=== PATIENT | female | born 1960 | race Caucasian/White ===

== ENCOUNTER 2017-10-29 20:59 | Inpatient (IN) | payer SELFPAY ==
[~2017-10-29] VITALS: Ht 160 cm; Wt 87.9 kg
[2017-10-30 02:12] VITALS: BP 167/80; PULSE 62; RESP 18; TEMP 97.3; O2SAT 98
[2017-10-30] MEDS ORDERED: ALUMINUM/MAGNESIUM/SIMETH 30 ML CUP PO PRN (04:30)
[2017-10-30] MEDS ORDERED: MAGNESIUM HYDROXIDE SUSP 30 ML CUP PO PRN (04:30)
[2017-10-30 05:57] VITALS: BP 148/76; PULSE 67; RESP 16; TEMP 97.9; O2SAT 97
[2017-10-30] MEDS: ACETAMINOPHEN 325 MG TAB PO PRN (12:26)
[2017-10-30] MEDS ORDERED: LORazepam 1 MG TAB PO PRN (14:00)
[2017-10-30] MEDS ORDERED: buPROPion HCL 150 MG EXTENDED RELEASE TAB PO SCH (14:00)
[2017-10-30] MEDS: ESCITALOPRAM OXALATE 20 MG TAB PO SCH (14:45)
--- NOTE | 2017-10-30 15:33 | HHI.HP ---
Provisional Diagnosis Admission Date Oct 30, 2017 at 01:45 [facility]. Major depressive disorder Certification of Person's Competence To Provide Express and Informed Consent I have personally examined Abril Camilo , a person being served at [facility] on, Oct 30, 2017 15:18. Express and informed consent means consent voluntarily given in writing, by a competent person, after sufficient explanation and disclosure of the subject matter involved to enable the person to make a knowing and willful decision without any element of force, fraud, deceit, duress, or other form of constraint or coercion. This person is 18 years of age or older, is not now known to be incompetent to consent to treatment with a guardian advocate, and does not have a health care surrogate or proxy currently making medical treatment decisions. I have found this person to be one of the following: [xxx] Competent to provide express and informed consent, as defined above, for voluntary admission to this facility and is competent to provide express and informed consent for treatment. He/she has the consistent capacity to make well reasoned, willful, and knowing decisions concerning his or her medical or mental health treatment. The person fully and consistently understands the purpose of the admission for examination/placement and is fully capable of personally exercising all rights assured [place] Incompetent to provide express and informed consent to voluntary admission, and this is incompetent to provide express and informed consent to treatment. The person must be transferred to involuntary status and a petition for a guardian advocate filed with the Circuit Court. [] Refusing to provide express and informed consent to voluntary admission but is competent to provide express and informed consent for treatment. The person must be discharged or transferred to involuntary status. Form shall be completed within 24 hours of a person's arrival at the receiving facility and filed in the clinical record of each person: 1. Admitted on a voluntary basis 2. Permitted to provide express and informed consent to his/her own treatment 3. Allowed to transfer from involuntary to voluntary status 4. Prior to permitting a person to consent to his or her own treatment after having been previously found incompetent to consent to treatment. History of Present Illness Capacity: Has Capacity HPI Patient is a 59-year-old woman, but currently engage to remarry, employed as a nurse, domiciled with [employer], with a past psychiatric history of depression and anxiety, one previous psychiatric admission 2013, when previous suicide attempt in 2013, no history of self-injurious behavior, with a past medical history significant for hypertension and hypothyroidism who was transferred from a local hospital under [place] [facility] due to worsening depressive symptoms and suicide ideations for the past 2 weeks along with having run out of her medications which patient was admitted to the inpatient psychiatry for further evaluation and management. Patient was found lying hospital bed noted B, cooperative but tearful during interview as well. Patient states that recently she has been having hypersomnolent sleeping more than usual, with low with decreased appetite and energy, decreased concentration and continues to feel depressed on and off for the past 2 months but recently worsening for the past 2 weeks. Patient states that she had also been having intermittent suicide ideation for the past month. She reports current psychosocial stressors include financial difficulty, not having [facility] medications for the past 2 weeks, currently not having insurance, and reporting abortus per in her knee which has been bothersome. Patient states that her fitila had brought into the hospital to seek help. Today she states that she does not have active suicide ideations, currently wants to be older resume her treatment and today feels more hopeful but denying any perceptional service of delusions at this time. Family psychiatric history: Reports immediate family with diagnoses of depression, anxiety and schizophrenia, denies any suicides in the family. Past psychiatric history: Previous psychiatric diagnoses depression, anxiety, one previous psychiatric admission in 2013, 1 previous suicide attempt 2013. Patient denies any history of self-injurious behavior or history of abuse. Substance use history: Patient reports having quit tobacco several months ago, has occasional alcohol use during holidays, denies any drug use. Past medical history: Hypertension hypothyroidism Allergies: Penicillin, MAURICIO inhibitors, erythromycin, nalbuphine Social history: but currently engaged with partner, domiciled with [employer], 2 roommates, employed as a nurse, no background. 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 Collateral contact: Felipa Brody [phone] Review of Systems Except as stated in HPI: all other systems reviewed are Neg Past Psych History Violence risk - others (6 mos) Low Violence risk - self (6 mos) Elevated due to recent suicidal ideations and history of suicide attempt in the past. Substance Abuse History Drugs/Alcohol past 12 months Previous psychiatric diagnoses depression, anxiety, one previous psychiatric admission in 2013, 1 previous suicide attempt 2013. Patient denies any history of self-injurious behavior or history of abuse Past Family Social History Coded Allergies: MAURICIO Inhibitors (Verified Allergy, Unknown, cough, 10/30/17) Penicillins (Verified Allergy, Unknown, rash, 10/30/17) erythromycin base (Verified Allergy, Unknown, rash, 10/30/17) nalbuphine (Verified Allergy, Unknown, rash, 10/30/17) Current Medications Medications (Trade) Dose Ordered Sig/Pavan Route Start Time Stop Time Status Last Admin (Tylenol) 650 mg Q4H PRN PO 10/30/17 04:30 10/30/17 12:26 (Milk Of Magnesia Liq) 30 ml DAILY PRN PO 10/30/17 04:30 (Mag-Al Plus Susp Liq) 30 ml Q6H PRN PO 10/30/17 04:30 (Synthroid) 75 mcg DAILY@0600 PO 10/31/17 06:00 (Cozaar) 100 mg DAILY PO 10/31/17 09:00 (Lexapro) 20 mg DAILY PO 10/30/17 14:00 10/30/17 14:45 (Desyrel) 50 mg HS PRN PO 10/30/17 14:00 (Ativan) 1 mg Q6H PRN PO 10/30/17 14:00 (Wellbutrin Sr) 150 mg BID PO 10/30/17 21:00 Family Psych History Many members from her immediate family with diagnoses of depression, anxiety and schizophrenia, no suicides in the family. Social History but currently engaged with partner, domiciled with [employer], 2 roommates , employed as a nurse, no background. 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 Collateral contact: Felipa Brody [phone] Patient's Strengths (min. 2) Verbal and communicative Physical Exam Patient not noted to be in acute distress, no gross motor abnormalities, no tremors or EPS, no noted psychomotor retardation or agitation. Vital Signs Vital Signs Date Time Temp Pulse Resp B/P (MAP) Pulse Ox O2 Delivery O2 Flow Rate FiO2 10/30/17 05:57 97.9 67 16 148/76 (100) 97 Mental Status Examination Appearance: Appropriate, Other (In hospital [facility]) Consciousness: Alert Orientation: Person, Place, Date/Time Motor Activity: Normal gait Speech: Unremarkable Language: Adequate Fund of Knowledge: Adequate Attention and Concentration: Adequate Memory: Unremarkable Mood: Sad Affect: Sad Thought Process & Associations: Intact, Linear Thought Content: Appropriate Hallucination Type: None Delusion Type: None Suicidal Ideation: No Suicidal Plan: No Suicidal Intention: No Homicidal Ideation: No Homicidal Plan: No Homicidal Intention: No Insight: Fair Judgment: Impulsive Assessment & Plan Problem List: (1) Major depressive disorder ICD Codes: F32.9 - Major depressive disorder, single episode, unspecified Assessment & Plan Estimated LOS: days Discharge Planning Return back to her residence Problem Qualifiers (1) Major depressive disorder: Mino Srinivasan MD Oct 30, 2017 15:33
--- NOTE | 2017-10-30 16:07 | PD.CONS ---
HPI Service [facility] Hospitalists Consult Requested By Psychiatric services Reason for Consult Assist with management of medical issues Primary Care Physician No Primary Care Physician Diagnoses: History of Present Illness Written by Hyun Valentin, acting as scribe for Dr. Hong on 10/30/17 at 16: 07. This is a 57-year-old female with past medical history significant for hypertension, hypothyroidism, occasional PVCs, depression, anxiety and IBS who was transferred to [facility] inpatient psychiatric unit under [facility] act for worsening depression. Hospitalist services have been consulted for evaluation and management of medical issues. Patient seen and examined. She is complaining of headache at present. She denies any complaints of fever, chills, vision changes, dizziness, numbness/tingling or weakness. She denies any complaints of chest pain or shortness of breath. She denies any nausea, vomiting or abdominal pain. She does complain of right knee pain secondary of bone spur which is chronic. She denies any urinary complaints. She does report an episode of diarrhea earlier that she relates to her history of IBS and increased stress. Reportedly, patient had worsening depression for the past 2 weeks with suicidal ideation and recently ran out of her medications. She has been hypersomnolent as well as having decreased appetite, energy and concentration. She has a previous history of suicide attempt in 2014. Review of Systems Except as stated in HPI: all other systems reviewed are Neg Past Family Social History Allergies: Coded Allergies: MAURICIO Inhibitors (Verified Allergy, Unknown, cough, 10/30/17) Penicillins (Verified Allergy, Unknown, rash, 10/30/17) erythromycin base (Verified Allergy, Unknown, rash, 10/30/17) nalbuphine (Verified Allergy, Unknown, rash, 10/30/17) Past Medical History Hypertension Hypothyroidism IBS Depression Anxiety Past Surgical History Left shoulder rotator cuff repair and removal bone spur Cholecystectomy Bilateral tubal ligation Appendectomy Reported Medications Cozaar 100 mg daily Synthroid 75 mcg daily Wellbutrin SR 150 mg twice daily Active Ordered Medications Current Medications Medications (Trade) Dose Ordered Sig/Pavan Route Start Time Stop Time Status Last Admin (Tylenol) 650 mg Q4H PRN PO 10/30/17 04:30 10/30/17 12:26 (Milk Of Magnesia Liq) 30 ml DAILY PRN PO 10/30/17 04:30 (Mag-Al Plus Susp Liq) 30 ml Q6H PRN PO 10/30/17 04:30 (Synthroid) 75 mcg DAILY@0600 PO 10/31/17 06:00 (Cozaar) 100 mg DAILY PO 10/31/17 09:00 (Lexapro) 20 mg DAILY PO 10/30/17 14:00 10/30/17 14:45 (Desyrel) 50 mg HS PRN PO 10/30/17 14:00 (Ativan) 1 mg Q6H PRN PO 10/30/17 14:00 (Wellbutrin Sr) 150 mg BID PO 10/30/17 21:00 Family History Mother, kidney tumor Father, lung problems Depression Anxiety Social History Patient has a previous history of tobacco use but states she quit March 2017. Patient reports alcohol consumption "varies depending on what I am drinking" ranging from 1 - 4 alcoholic beverages. She denies any illicit drug use. 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 Physical Exam Vital Signs Vital Signs Date Time Temp Pulse Resp B/P (MAP) Pulse Ox O2 Delivery O2 Flow Rate FiO2 10/30/17 05:57 97.9 67 16 148/76 (100) 97 10/30/17 02:12 97.3 62 18 167/80 (109) 98 Physical Exam GENERAL: This is a well-nourished, well-developed female patient, in no apparent distress. Awake and alert. SKIN: No rashes, ecchymoses or lesions. Cool and dry. HEAD: Atraumatic. Normocephalic. No temporal or scalp tenderness. EYES: Pupils equal round and reactive. Extraocular motions intact. No scleral icterus. No injection or drainage. ENT: Nose without bleeding or purulent drainage. Throat without erythema, tonsillar hypertrophy or exudate. Uvula midline. Airway patent. NECK: Trachea midline. No JVD or lymphadenopathy. Supple, nontender, no meningeal signs. CARDIOVASCULAR: Regular rate and rhythm without murmurs, gallops, or rubs. RESPIRATORY: Clear to auscultation. Breath sounds equal bilaterally. No wheezes , rales, or rhonchi. GASTROINTESTINAL: Abdomen soft, non-tender, nondistended. No hepato-splenomegaly , or palpable masses. No guarding. MUSCULOSKELETAL: Extremities without clubbing, cyanosis, or edema. +mild right knee tenderness to palpation, no effusion or warmth appreciated. No calf tenderness. NEUROLOGICAL: Awake and alert. Cranial nerves II through XII intact. Motor and sensory grossly within normal limits. Able to move all extremities spontaneously. Normal speech. PSYCHIATRIC: Calm and cooperative with examination Assessment and Plan Assessment and Plan 57-year-old female with past medical history significant for hypertension, hypothyroidism, occasional PVCs, depression, anxiety and IBS who was transferred to [facility] inpatient psychiatric unit under [facility] act for worsening depression. Hospitalist services have been consulted for evaluation and management of medical issues. Depression Anxiety History of suicide attempt -Management per psychiatric service Hypertension -Agree with resuming patient's Cozaar 100 mg daily -Continue to monitor BP and adjust treatment accordingly Hypothyroidism -Agree with resuming home dose of Levothyroxine 75mcg daily -Reviewed medical records from patient's previous hospitalization and if TSH has not been recently drawn will order here at our institution IBS patient with episode of diarrhea x 1 -monitor Right knee pain, chronic ppr, secondary to bone spur -Tylenol prn pain DVT prophylaxis -Patient is ambulatory Thank you very kindly for this consultation and will continue to follow along with you. This note was transcribed by tamika Valentin. I, Dr. Kadeem Hong personally performed the history, physical exam, and medical decision making; and confirmed the accuracy of the information in the transcribed note. Authenticated by Dr. Kadeem Hong on 10/30/17 at 17:42. Discussed Condition With patient, nursing staff Hyun Valentin Oct 30, 2017 16:07 Kadeem Hong MD Oct 30, 2017 17:42
[2017-10-30 17:39] VITALS: BP 132/78; PULSE 77; RESP 19; TEMP 97.8; O2SAT 98
[2017-10-30] MEDS: buPROPion HCL 150 MG SUSTAINED RELEASE TAB PO SCH (20:58)
[2017-10-30] MEDS: traZODone HCL 50 MG TAB PO PRN (21:48)
[2017-10-31] MEDS: LEVOTHYROXINE SODIUM 75 MCG TAB PO SCH (05:49)
[2017-10-31 06:04] VITALS: BP 127/69; PULSE 60; RESP 16; TEMP 97.9; O2SAT 96
[2017-10-31] MEDS: LOSARTAN 50 MG TAB PO SCH (08:40)
[2017-10-31] MEDS: ESCITALOPRAM OXALATE 20 MG TAB PO SCH (08:40)
[2017-10-31] MEDS: buPROPion HCL 150 MG SUSTAINED RELEASE TAB PO SCH ×2 (09:37→21:20)
[2017-10-31] MEDS: ACETAMINOPHEN 325 MG TAB PO PRN (09:38)
--- NOTE | 2017-10-31 11:44 | HHI.PR ---
Subjective Remarks Follow-up on patient with depression, hypertension, hypothyroidism, right knee pain. Patient seen and examined. Patient complains that her right knee pain is 2 out of 10. She states that she is trying to get in to see an orthopedist but has not been able to do so secondary to not having any insurance coverage but she will have at the end of the month. She complains of some anxiety today mostly due to 1 of the other patients who talks constantly. She denies any complaints of headache, vision changes or dizziness. Denies any chest pain or shortness of breath. Denies any nausea, vomiting or abdominal pain. Patient states she takes Aleve at home with good results in her right knee pain. Discussed with patient reviewed previous medical records and TSH level was not drawn so we will order for her during this hospitalization. Objective Vitals Vital Signs Date Time Temp Pulse Resp B/P (MAP) Pulse Ox O2 Delivery O2 Flow Rate FiO2 10/31/17 06:04 97.9 60 16 127/69 (88) 96 10/30/17 17:39 97.8 77 19 132/78 (96) 98 Objective Remarks GENERAL: This is a well-nourished, well-developed female patient, in no apparent distress. Awake and alert. SKIN: No rashes, ecchymoses or lesions. Cool and dry. HEAD: Atraumatic. Normocephalic. EYES: Pupils equal round and reactive. Extraocular motions intact. No scleral icterus. No injection or drainage. ENT: Nose without bleeding or purulent drainage. Airway patent. MMM. NECK: Trachea midline. CARDIOVASCULAR: Regular rate and rhythm without murmurs, gallops, or rubs. RESPIRATORY: Clear to auscultation. Breath sounds equal bilaterally. No wheezes , rales, or rhonchi. GASTROINTESTINAL: Abdomen soft, non-tender, nondistended. No hepato-splenomegaly , or palpable masses. No guarding. MUSCULOSKELETAL: Extremities without clubbing, cyanosis, or edema. +mild right knee tenderness to palpation, no effusion or warmth appreciated. No calf tenderness. NEUROLOGICAL: Awake and alert. Cranial nerves II through XII intact. Motor and sensory grossly within normal limits. Able to move all extremities spontaneously. Normal speech. PSYCHIATRIC: Calm and cooperative with examination Procedures None A/P Assessment and Plan 57-year-old female with past medical history significant for hypertension, hypothyroidism, occasional PVCs, depression, anxiety and IBS who was transferred to [facility] inpatient psychiatric unit under [facility] act for worsening depression. Hospitalist services have been consulted for evaluation and management of medical issues. Depression Anxiety History of suicide attempt -Management per psychiatric service Hypertension, chronic, much better controlled today -Continue patient on Cozaar 100 mg daily -Continue to monitor BP and adjust treatment accordingly Hypothyroidism -TSH ordered and elevated at 58.5. Confirmed with patient she has not been on her thyroid replacement for at least 2 1/2 weeks. Recommend she continue on current dose of levothyroxine and plan to follow-up with her PCP to have TSH level rechecked in 4-6 weeks. Discussed as much with [place] Irvin. -Continue on home dose of levothyroxine IBS patient with episode of diarrhea x 1 -monitor Right knee pain, chronic ppr, secondary to bone spur -Tylenol prn pain DVT prophylaxis -Patient is ambulatory Patient appears stable from hospitalist standpoint. [facility] will sign off. Please reconsult if needed. Hyun Valentin Oct 31, 2017 11:44
[2017-10-31] MEDS: NAPROXEN 250 MG TAB PO SCH (11:52)
[2017-10-31] MEDS: FAMOTIDINE 20 MG TAB PO SCH ×2 (11:52→21:20)
--- NOTE | 2017-10-31 14:32 | HHI.PYPN ---
Subjective Remarks Patient seen for follow up; chart reviewed. Discussion with nursing staff reported that the patient slept well with trazodone, feeling "edgy" today. Patient was found lying on hospital bed, noted to be calm and cooperative. Patient states that she is feeling better today, more hopeful and less depressed with no SI today. She states that she is feeling better but "feel that I could be a little more up". She reports attending some groups. Review of Systems Except as stated in HPI: all other systems reviewed are Neg Mental Status Examination Appearance: Appropriate, Other (In [facility]) Consciousness: Alert Orientation: Person, Place, Date/Time Motor Activity: Normal gait Speech: Unremarkable Language: Adequate Fund of Knowledge: Adequate Attention and Concentration: Adequate Memory: Unremarkable Mood: Sad Affect: Sad Thought Process & Associations: Intact, Linear Thought Content: Appropriate Hallucination Type: None Delusion Type: None Suicidal Ideation: No Suicidal Plan: No Suicidal Intention: No Homicidal Ideation: No Homicidal Plan: No Homicidal Intention: No Insight: Fair Judgment: Impulsive Results Labs labs reviewed Test 10/31/17 11:26 Thyroid Stimulating Hormone 3rd Gen 58.500 uIU/ML Vitals/IOs Vital Signs Date Time Temp Pulse Resp B/P (MAP) Pulse Ox O2 Delivery O2 Flow Rate FiO2 10/31/17 06:04 97.9 60 16 127/69 (88) 96 Assessment & Plan Problem List: (1) Major depressive disorder ICD Codes: F32.9 - Major depressive disorder, single episode, unspecified Assessment & Plan Patient reports having some improvement but continues to appear dysphoric and relates wanting to improve her mood more. She denies any SI today. TSH level was abnormally elevated, will await recommendations from primary medical team. Continue current treatment, continue to monitor mood and behavior. Discharge planning in progress. Justification for Cont. Inpt. At risk for further decompensation if at lower level of care. Discharge Planning Return back to her residence upon psychiatric clearance. Problem Qualifiers (1) Major depressive disorder: Mino Srinivasan MD Oct 31, 2017 14:32
[2017-11-01] MEDS: traZODone HCL 50 MG TAB PO PRN ×2 (00:41→21:24)
[2017-11-01] MEDS: NAPROXEN 250 MG TAB PO SCH ×3 (00:41→23:16)
[2017-11-01] MEDS: LEVOTHYROXINE SODIUM 75 MCG TAB PO SCH (06:04)
[2017-11-01 06:10] VITALS: BP 128/74; PULSE 60; RESP 16; TEMP 97.3; O2SAT 98
[2017-11-01 08:30] VITALS: BP 147/85; PULSE 77
[2017-11-01] MEDS: LOSARTAN 50 MG TAB PO SCH (08:52)
[2017-11-01] MEDS: ESCITALOPRAM OXALATE 20 MG TAB PO SCH (08:52)
[2017-11-01] MEDS: FAMOTIDINE 20 MG TAB PO SCH ×2 (08:52→21:19)
[2017-11-01] MEDS: ACETAMINOPHEN 325 MG TAB PO PRN (08:53)
[2017-11-01] MEDS: buPROPion HCL 150 MG SUSTAINED RELEASE TAB PO SCH (08:56)
[2017-11-01 16:05] VITALS: BP_SYST 173; BP_SYST 179; BP_DIAS 81; BP_DIAS 84; PULSE 74; RESP 17; TEMP 97.7; O2SAT 96
[2017-11-01] MEDS ORDERED: cloNIDine HCL 0.1 MG TAB PO PRN (16:15)
--- NOTE | 2017-11-01 17:22 | HHI.PYPN ---
Subjective Remarks Patient seen for follow, chart reviewed. Discussion nursing staff reported the patient noted to be depressed, having tearful episodes still and appearing sad. Patient was found in blade on unit noted B, cooperative. Patient states that she is feeling "a lot better" denying having crying today and contrary to observations from nursing report today. She states that her blood pressure has been somewhat better. Reports having some sleep difficulties due to the environment, and reporting having some improvement in her depressed mood. Patient denies any suicide ideations at this time. Patient states that she is looking forward to be feeling better to return back to work and back to her fianc. Review of Systems Except as stated in HPI: all other systems reviewed are Neg Mental Status Examination Appearance: Appropriate, Other (In [facility]) Consciousness: Alert Orientation: Person, Place, Date/Time Motor Activity: Normal gait Speech: Unremarkable Language: Adequate Fund of Knowledge: Adequate Attention and Concentration: Adequate Memory: Unremarkable Mood: Sad Affect: Sad Thought Process & Associations: Intact, Linear Thought Content: Appropriate Hallucination Type: None Delusion Type: None Suicidal Ideation: No Suicidal Plan: No Suicidal Intention: No Homicidal Ideation: No Homicidal Plan: No Homicidal Intention: No Insight: Fair Judgment: Impulsive Results Vitals/IOs Vital Signs Date Time Temp Pulse Resp B/P (MAP) Pulse Ox O2 Delivery O2 Flow Rate FiO2 11/01/17 16:05 173/81 (111) 11/01/17 16:05 97.7 74 17 96 Assessment & Plan Problem List: (1) Major depressive disorder ICD Codes: F32.9 - Major depressive disorder, single episode, unspecified Assessment & Plan Patient reports having improved mood but continues to be observed by staff to have frequent crying episodes on the unit, appearing dysphoric still, but is attending groups and participating in self-care. We will increase bupropion to 200 mg p.o. twice daily for depression, continue rest of medications. We will continue to monitor mood and behavior. The patient continues to improve possible discharge on Saturday. Discharge planning in progress. Justification for Cont. Inpt. At risk of further decompensation a lower level of care. Discharge Planning Return back to her residence when psychiatrically stable. Problem Qualifiers (1) Major depressive disorder: Mino Srinivasan MD Nov 01, 2017 17:22
--- NOTE | 2017-11-01 17:59 | HHI.PR ---
Subjective Remarks Reconsulted for elevated BP Patient seen and examined today. Reports she knows that her BP is elevated because she can feel flushing, chest tightness. She attributes this to her TSH being elevated. Otherwise, denies pain and discomfort. Denies SOB/ dyspnea. Denies palpitations, headaches, dizziness. Denies fevers, chills, n/v/d. Denies dysuria. Objective Vitals Vital Signs Date Time Temp Pulse Resp B/P (MAP) Pulse Ox O2 Delivery O2 Flow Rate FiO2 11/01/17 16:05 173/81 (111) 11/01/17 16:05 97.7 74 17 179/84 (115) 96 11/01/17 08:30 77 147/85 (105) 11/01/17 06:10 97.3 60 16 128/74 (92) 98 Objective Remarks GENERAL: This is a well-nourished, well-developed patient, in no apparent distress. SKIN: Warm and dry. HEENT: Normocephalic. Pupils equal round and reactive. Nose without bleeding. Airway patent. NECK: Trachea midline. CARDIOVASCULAR: Regular rate and rhythm without murmurs, gallops, or rubs. RESPIRATORY: Clear to auscultation. Breath sounds equal bilaterally. No wheezes , rales, or rhonchi. GASTROINTESTINAL: Abdomen soft, non-tender, nondistended. Bowel Sounds normoactive x4. MUSCULOSKELETAL: Extremities without clubbing, cyanosis. Bilateral lower extremity edema, trace, NEUROLOGICAL: Awake and alert. Oriented to time, place, person. No focal neuro deficit. Moves all extremities. Normal speech. Procedures None A/P Problem List: (1) Elevated TSH ICD Code: R94.6 - Abnormal results of thyroid function studies (2) Hypothyroidism ICD Code: E03.9 - Hypothyroidism, unspecified (3) Major depressive disorder ICD Code: F32.9 - Major depressive disorder, single episode, unspecified Assessment and Plan 57-year-old female with past medical history significant for hypertension, hypothyroidism, occasional PVCs, depression, anxiety and IBS who was transferred to [facility] inpatient psychiatric unit under [facility] for worsening depression. Hospitalist services have been consulted for evaluation and management of medical issues. Depression Anxiety History of suicide attempt -Management per psychiatric service Hypertension, chronic, uncontrolled -Continue patient on Cozaar 100 mg daily -Patient will continue to have fluctuations in her BP secondary to abnormal TSH. Discussed with patient extensively. She is agreeable. -Clonidine as needed if patient's BP is >180 Hypothyroidism -TSH ordered and elevated at 58.5. Confirmed with patient she has not been on her thyroid replacement for at least 2 1/2 weeks. Recommend she continue on current dose of levothyroxine and plan to follow-up with her PCP to have TSH level rechecked in 4-6 weeks. -Continue on home dose of levothyroxine IBS patient with episode of diarrhea x 1 -monitor Right knee pain, chronic ppr, secondary to bone spur -Tylenol prn pain -Brace in place DVT prophylaxis -Patient is ambulatory Problem Qualifiers (1) Major depressive disorder: Syd Mancini [employer] Nov 01, 2017 17:59
[2017-11-01 18:06] VITALS: BP 173/84; PULSE 74; RESP 17; TEMP 97.7; O2SAT 96
[2017-11-01] MEDS: buPROPion HCL 100 MG SUSTAINED RELEASE TAB PO SCH (21:20)
[2017-11-02] MEDS: LEVOTHYROXINE SODIUM 75 MCG TAB PO SCH (06:27)
[2017-11-02 07:16] VITALS: BP 107/59; PULSE 81; RESP 18; TEMP 97.7; O2SAT 98
[2017-11-02] MEDS: buPROPion HCL 100 MG SUSTAINED RELEASE TAB PO SCH ×2 (08:48→22:00)
[2017-11-02] MEDS: FAMOTIDINE 20 MG TAB PO SCH ×2 (08:48→22:00)
[2017-11-02] MEDS: ESCITALOPRAM OXALATE 20 MG TAB PO SCH (08:48)
[2017-11-02] MEDS: LOSARTAN 50 MG TAB PO SCH (08:48)
[2017-11-02] MEDS: NAPROXEN 250 MG TAB PO SCH ×2 (12:22→23:15)
[2017-11-02] MEDS: ACETAMINOPHEN 325 MG TAB PO PRN ×2 (15:41→22:02)
--- NOTE | 2017-11-02 16:29 | HHI.PYPN ---
Subjective Remarks Pt seen and discussed with staff. She has been pleasant and cooperative. She is compliant with medications and denies side effects. She has been in her room, reading for most of day. Depression is decreasing, but she reports that cognitive effects of depression ("feel like my brain is numb"). Mental Status Examination Appearance: Appropriate, Other (In [facility]) Consciousness: Alert Orientation: Person, Place, Date/Time Motor Activity: Normal gait Speech: Unremarkable Language: Adequate Fund of Knowledge: Adequate Attention and Concentration: Adequate Memory: Unremarkable Mood: Sad Affect: Sad Thought Process & Associations: Intact, Linear Thought Content: Appropriate Hallucination Type: None Delusion Type: None Suicidal Ideation: No Suicidal Plan: No Suicidal Intention: No Homicidal Ideation: No Homicidal Plan: No Homicidal Intention: No Insight: Fair Judgment: Impulsive Results Vitals/IOs Vital Signs Date Time Temp Pulse Resp B/P (MAP) Pulse Ox O2 Delivery O2 Flow Rate FiO2 11/02/17 07:16 97.7 81 18 107/59 (75) 98 Intake and Output 11/02/17 11/02/17 11/03/17 08:00 16:00 00:00 Intake Total 360 ml Balance 360 ml Assessment & Plan Problem List: (1) Major depressive disorder ICD Codes: F32.9 - Major depressive disorder, single episode, unspecified Assessment & Plan Continue current tx plan. Estimated LOS: days Justification for Cont. Inpt. risk of decompensation Problem Qualifiers (1) Major depressive disorder: Georgia Gibbs MD Nov 02, 2017 16:29
[2017-11-02 18:12] VITALS: BP 163/66; PULSE 71; RESP 18; TEMP 98.2; O2SAT 98
[2017-11-02] MEDS: traZODone HCL 50 MG TAB PO PRN (22:00)
[2017-11-03 06:00] VITALS: BP 130/68; PULSE 59; RESP 18; TEMP 97.6; O2SAT 97
[2017-11-03] MEDS: ACETAMINOPHEN 325 MG TAB PO PRN (06:20)
[2017-11-03] MEDS: LEVOTHYROXINE SODIUM 75 MCG TAB PO SCH (06:20)
[2017-11-03] MEDS: buPROPion HCL 100 MG SUSTAINED RELEASE TAB PO SCH ×2 (09:24→21:31)
[2017-11-03] MEDS: FAMOTIDINE 20 MG TAB PO SCH ×2 (09:24→21:31)
[2017-11-03] MEDS: LOSARTAN 50 MG TAB PO SCH (09:24)
[2017-11-03] MEDS: ESCITALOPRAM OXALATE 20 MG TAB PO SCH (09:24)
--- NOTE | 2017-11-03 13:59 | HHI.PYPN ---
Subjective Remarks Pt seen and discussed with staff. Pt has been compliant with medications and denies side effects. She reports that she is doing much better today and depression is improved. She has been attending therapeutic activities. No SI/HI Mental Status Examination Appearance: Appropriate, Other (In [facility]) Consciousness: Alert Orientation: Person, Place, Date/Time Motor Activity: Normal gait Speech: Unremarkable Language: Adequate Fund of Knowledge: Adequate Attention and Concentration: Adequate Memory: Unremarkable Mood: Sad Affect: Sad Thought Process & Associations: Intact, Linear Thought Content: Appropriate Hallucination Type: None Delusion Type: None Suicidal Ideation: No Suicidal Plan: No Suicidal Intention: No Homicidal Ideation: No Homicidal Plan: No Homicidal Intention: No Insight: Fair Judgment: Impulsive Results Vitals/IOs Vital Signs Date Time Temp Pulse Resp B/P (MAP) Pulse Ox O2 Delivery O2 Flow Rate FiO2 11/03/17 06:00 97.6 59 18 130/68 (88) 97 Assessment & Plan Problem List: (1) Major depressive disorder ICD Codes: F32.9 - Major depressive disorder, single episode, unspecified Assessment & Plan Contnue current tx plan. Estimated LOS: days Justification for Cont. Inpt. risk of decompensation Problem Qualifiers (1) Major depressive disorder: Georgia Gibbs MD Nov 03, 2017 13:59
[2017-11-03 19:44] VITALS: BP 142/74; PULSE 70; RESP 18; TEMP 98.1; O2SAT 97
[2017-11-03] MEDS: traZODone HCL 50 MG TAB PO PRN (21:55)
[2017-11-04 06:00] VITALS: BP 109/59; PULSE 59; RESP 18; TEMP 97.2; O2SAT 95
[2017-11-04] MEDS: LEVOTHYROXINE SODIUM 75 MCG TAB PO SCH (06:02)
[2017-11-04] MEDS: ESCITALOPRAM OXALATE 20 MG TAB PO SCH (08:54)
[2017-11-04] MEDS: LOSARTAN 50 MG TAB PO SCH (08:54)
[2017-11-04] MEDS: buPROPion HCL 100 MG SUSTAINED RELEASE TAB PO SCH (08:54)
[2017-11-04] MEDS: FAMOTIDINE 20 MG TAB PO SCH (08:54)
--- NOTE | 2017-11-04 10:37 | PD.TTN ---
Patient Problems 1. Discharge planning 2. Medication compliance 3. Knowledge deficit 4. Lack of coping skills Progress Toward Goals Provider Present: Dr. Dora Srinivasan Provider Input: Dr. Harley's treatment team met to discuss patient's medication, discharge and treatment plan. Patient is doing well will be discharged home. Nurse(s) Input: Patient's nurse reports patient doing well. Medication compliant Psychiatric Counselors Present: Yanique Cai [facility] Psych Therapist Input: Patient presents well. Denies suicidal and homicidal ideation. Medication compliant. Mood pleasant cooperative. Patient will follow up at [facility]. Group Spec/RT/OT/EARLY Present: SHARATH Moore Group Spec/RT/OT/EARLY Input: Patient does not attend groups. Yanique Cai [facility] Nov 04, 2017 10:37
[2017-11-04] MEDS ORDERED: ESCI20TA PO (10:54)
[2017-11-04] MEDS ORDERED: BUPR200T PO (10:54)
[2017-11-04] MEDS ORDERED: FAMO20TA2 PO (10:54)
[2017-11-04] MEDS ORDERED: LOSA100T PO (10:54)
[2017-11-04] MEDS ORDERED: LEVO.075 PO (10:54)
--- NOTE | 2017-11-04 10:54 | HHI.DS ---
Psychiatry Discharge Summary Inpatient Psychiatric care?: Yes Advance Directive: No Reason Not Provided: patient has living will Mental Health AdvanceDirective: No Health Care Proxy: No Admission Admission Date Oct 30, 2017 at 01:45 Admission Diagnosis: (1) Major depressive disorder ICD Code: F32.9 - Major depressive disorder, single episode, unspecified Brief History Patient is a 59-year-old woman, but currently engage to remarry, employed as a nurse, domiciled with [employer], with a past psychiatric history of depression and anxiety, one previous psychiatric admission 2013, when previous suicide attempt in 2013, no history of self-injurious behavior, with a past medical history significant for hypertension and hypothyroidism who was transferred from a local hospital under [facility] due to worsening depressive symptoms and suicide ideations for the past 2 weeks along with having run out of her medications which patient was admitted to the inpatient psychiatry for further evaluation and management. Patient was found lying hospital bed noted B, cooperative but tearful during interview as well. Patient states that recently she has been having hypersomnolent sleeping more than usual, with low with decreased appetite and energy, decreased concentration and continues to feel depressed on and off for the past 2 months but recently worsening for the past 2 weeks. Patient states that she had also been having intermittent suicide ideation for the past month. She reports current psychosocial stressors include financial difficulty, not having Placedo II medications for the past 2 weeks, currently not having insurance, and reporting abortus per in her knee which has been bothersome. Patient states that her fianc had brought into the hospital to seek help. Today she states that she does not have active suicide ideations, currently wants to be older resume her treatment and today feels more hopeful but denying any perceptional service of delusions at this time. Family psychiatric history: Reports immediate family with diagnoses of depression, anxiety and schizophrenia, denies any suicides in the family. Past psychiatric history: Previous psychiatric diagnoses depression, anxiety, one previous psychiatric admission in 2013, 1 previous suicide attempt 2013. Patient denies any history of self-injurious behavior or history of abuse. Substance use history: Patient reports having quit tobacco several months ago, has occasional alcohol use during holidays, denies any drug use. Past medical history: Hypertension hypothyroidism Allergies: Penicillin, MAURICIO inhibitors, erythromycin, nalbuphine Social history: but currently engaged with partner, domiciled with [employer], 2 roommates, employed as a nurse, no background. Patient states she has 1 gun that is nonfunctional has no ammunition for this fitness instructor states that this can was a momentum of sentimental value from her father who had . 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 Patient was continued on buproprion and titrated to 200mg OP BID, escitalopram 20mg PO daily, along with medication regimen for chronic medical conditions which she tolerated well with no notable adverse drug reactions. During admission patient was noted with depressed mood and episodes of crying, but was improving throughout admission as noted with her interactions with staff. Patient generally with stable mood, calm and cooperative with staff and compliant with treatment. Patient continued to endorse stable moods deny feeling sad or depressed, denies any manic or psychotic symptoms. Patient [facility] with plan to continue treatment and will be continuing treatment and outpatient follow-up. Upon discharge patient stated feeling good, noted to be calm and cooperative with staff. She agreed to continuing medical recommendations, treatment and cooperate for continuity of care. Patient; denies SI, HI, AVH or delusions. Supportive psychotherapy provided. Suicide and violence risk assessment on day of discharge both suggest lower imminent risk, and the patient 's level of function is adequate for planned level of outpatient care. Patient has maximized benefit from this inpatient psychiatric hospital stay and to return to psychiatric emergency room for any concerning psychiatric symptoms. Patient agrees with plan. Results Blood Pressure 109 / 59 Vital Signs Date Time Temp Pulse Resp B/P (MAP) Pulse Ox O2 Delivery O2 Flow Rate FiO2 11/04/17 06:00 97.2 59 18 109/59 (76) 95 WNL Summary of Procedures none Pending results at discharge: No Medications # of Antipsychotic meds at D/C: 0 Approp Antipsych med options 1 - Minimum of three failed multiple trials of monotherapy. 2 - Documented plan to taper to monotherapy due to previous use of multiple meds OR cross-taper in progress at D/C. 3 - Documentation of augmentation of Clozapine. 4 - Justification other than those listed in allowable values 1-3, document here : Discharge Discharge Date: Nov 04, 2017 Discharge Diagnosis: (1) Major depressive disorder ICD Code: F32.9 - Major depressive disorder, single episode, unspecified Pt Condition on Discharge: Stable Discharge Disposition: Discharge Home Discharge Instructions Diet Instructions: As Tolerated, No Restrictions Activities you can perform: Regular-No Restrictions Discharge Time > 30 minutes Mental Status Examination Appearance: Appropriate, Other ([facility]) Consciousness: Alert Orientation: Person, Place, Date/Time Motor Activity: Normal gait Speech: Unremarkable Language: Adequate Fund of Knowledge: Adequate Attention and Concentration: Adequate Memory: Unremarkable Mood: Appropriate Affect: Appropriate Thought Process & Associations: Intact, Goal directed, Linear Thought Content: Appropriate Hallucination Type: None Delusion Type: None Suicidal Ideation: No Suicidal Plan: No Suicidal Intention: No Homicidal Ideation: No Homicidal Plan: No Homicidal Intention: No Insight: Adequate Judgment: Adequate Discharge/Advance Care Plan Health Problems: (1) Major depressive disorder Goals to promote your health * To prevent worsening of your condition and complications * To maintain your health at the optimal level Directions to meet your goals Take your medications as prescribed Follow your dietary instruction Follow activity as directed Keep your appointments as scheduled Take your immunizations and boosters as scheduled If your symptoms worsen call your PCP, if no PCP go to Urgent Care Center or Emergency Room For 24/ questions related to your inpatient stay or results of tests pending at discharge, please contact Dr. Mino Srinivasan at Smoking is Dangerous to Your Health. Avoid second hand smoking Problem Qualifiers (1) Major depressive disorder: Mino Srinivasan MD Nov 04, 2017 10:54
[2017-11-04] MEDS ORDERED: NAPROXEN 250 MG TAB PO ONE (11:00)
[2017-11-04] MEDS ORDERED: LORazepam 0.5 MG TAB PO ONE (11:00)
== END 2017-11-04 13:30 | disposition home or self-care (01) | DRG 881 ==
LOC: H260 10-30 01:45
PROVIDERS: ADMIT Student in an Organized Health Care Education/Training Program; ATTEND Student in an Organized Health Care Education/Training Program
DX: F32.9 Major depressive disorder, single episode, unspecified (principal); R45.851 Suicidal ideations; Z91.14 Patient's other noncompliance with medication regimen; I10 Essential (primary) hypertension; F41.9 Anxiety disorder, unspecified; E03.9 Hypothyroidism, unspecified; G47.10 Hypersomnia, unspecified; R63.0 Anorexia; K58.0 Irritable bowel syndrome with diarrhea; M76.9 Unspecified enthesopathy, lower limb, excluding foot; Z81.8 Family history of other mental and behavioral disorders; Z87.891 Personal history of nicotine dependence; Z88.0 Allergy status to penicillin; Z88.1 Allergy status to other antibiotic agents; Z91.5 Personal history of self-harm
CPT/HCPCS: 84443; L1810